=== PATIENT | female | born 1965 | race Caucasian/White ===

== ENCOUNTER → 2021-01-23 16:30 | Outpatient (BNVA) | payer OTHER, SELFPAY | PROVIDERS: PCP Family Medicine; Visit Provider Family Medicine | DX: J06.9 Acute upper respiratory infection, unspecified (principal) | CPT/HCPCS: 87400 ==

== ENCOUNTER → 2021-01-24 09:27 | Outpatient (BNVA) | payer OTHER, SELFPAY | PROVIDERS: PCP Family Medicine; Visit Provider Family Medicine | DX: Z20.822 Contact with and (suspected) exposure to COVID-19 (principal); Z11.52 Encounter for screening for COVID-19 | CPT/HCPCS: 87635 ==

== ENCOUNTER → 2021-01-30 15:45 | Outpatient (BNVA) | payer OTHER, SELFPAY | PROVIDERS: PCP Family Medicine; Visit Provider Nurse Practitioner Family | DX: J18.9 Pneumonia, unspecified organism (principal) | CPT/HCPCS: 71046 ==

== ENCOUNTER 2021-06-19 14:08 | Outpatient (CLI) | payer OTHER, SELFPAY ==
--- NOTE | 2021-06-19 14:21 | CT_ITS ---
WS: [id number] CT CHEST WITHOUT INTRAVENOUS CONTRAST HISTORY: R91.1 - Solitary pulmonary nodule TECHNIQUE: Contiguous 5 mm axial imaging performed on the thorax. Coronal and sagittal reformats are submitted. All CT scans at [facility] use at least one of these dose optimization techniques: automated exposure control; mA and/or kV adjustment per patient size (includes targeted exams where dose is matched to clinical indication); or iterative reconstruction. CONTRAST: None DLP: 654.72 mGy.cm COMPARISON: Chest radiograph 01/30/2021 Lungs and central airway: Lungs are mildly hyperexpanded. There is mild thickening of the interstitiu m in the periphery of the lungs. This is most significant in the mid and lower lung mattson. No mass o r nodule identified. No pneumonia. No asymmetry in the lucency of the lungs. Pleura: Normal. No pleural effusion. Heart and pericardium: Moderate enlargement the heart. No pericardial effusion. There are a few scatt ered coronary artery calcifications. Mediastinum and soni: Benign calcified LEFT hilar lymph nodes. No adenopathy. Vessels: Mild atherosclerosis aorta. Pulmonary artery size is equal to the aorta. Chest wall and lower neck: No soft tissue masses. Upper abdomen: Liver is moderately enlarged. The entire liver is not visualized. There is diffuse hep atic steatosis. Prior cholecystectomy. No adrenal mass. No bile duct dilatation evident. Osseous structures: No destructive process. CT/CT chest wo con [id number] IMPRESSION: 1. No pulmonary mass or nodule. 2. Hyperexpanded lungs with mild peripheral interstitial thickening. 3. Moderate hepatomegaly and hepatic steatosis. 4. Prior cholecystectomy. 5. No adenopathy.
== END 2021-06-19 14:09 | disposition home or self-care (01) ==
PROVIDERS: PCP Nurse Practitioner Family; Visit Provider Internal Medicine Pulmonary Disease
DX: R91.1 Solitary pulmonary nodule (principal); Z90.49 Acquired absence of other specified parts of digestive tract; R16.0 Hepatomegaly, not elsewhere classified; K76.0 Fatty (change of) liver, not elsewhere classified
CPT/HCPCS: 71250

== ENCOUNTER 2021-10-06 10:15 | Outpatient (CLI) | payer OTHER, SELFPAY ==
--- NOTE | 2021-10-06 10:28 | USCV_ITS ---
Callie Almaraz Age: 56 Gender: F : 1965 Exam Date: 10/06/2021 10:42 Ordering Phys: Deanna Longo Technologist: Donny Reyes Exam Location: [facility] [place] Indication: chest pain BP: 122 / 72 HR: 66 Rhythm: Sinus Technical Quality: Adequate MEASUREMENTS (Male / Female) Normal Values 2D ECHO LV Diastolic Diameter PLAX 3.8 cm 4.2 - 5.9 / 3.9 - 5.3 cm LV Systolic Diameter PLAX 2.9 cm IVS Diastolic Thickness 0.9 cm 0.6 - 1.0 / 0.6 - 0.9 cm IVS Systolic Thickness 1.5 cm LVPW Diastolic Thickness 1.1 cm 0.6 - 1.0 / 0.6 - 0.9 cm LVPW Systolic Thickness 1.6 cm LVOT Diameter 2.1 cm LV Ejection Fraction 2D Teich 50.2 % LV Ejection Fraction MOD 2C 57.4 % LV Ejection Fraction 2C AL 57.8 % LA Diameter 3.5 cm Aorta at Sinotubular Diameter 2.5 cm IVC Diameter 1.6 cm M-MODE Aortic Annulus Diameter 3.1 cm LA Ao Ratio MM 1.3 MV E Point Septal Separation 1.0 cm DOPPLER AV Peak Velocity 136.0 cm/s LVOT Peak Velocity 109.0 cm/s AV Area Cont Eq vti 3.1 cm squared AV Area Cont Eq pk 2.7 cm squared MV Area PHT 5.0 cm squared Mitral E to A Ratio 1.0 MV E' Velocity 48.0 cm/s Mitral E to MV E' Ratio 9.3 Mitral E to LV E' Lateral Ratio 8.7 Mitral E to LV E' Septal Ratio 10.1 TR Peak Velocity 158.7 cm/s TR Peak Gradient 10.1 mmHg Right Atrial Pressure 3.0 mmHg Pulmonary Artery Systolic Pressu 13.1 mmHg PV Peak Velocity 87.0 cm/s FINDINGS Left Ventricle Normal left ventricular size and systolic function, EF 69 %. No regional wall motion abnormalities. Right Ventricle The right ventricle is normal in size and function. Right Atrium The right atrium is normal in size. Left Atrium The left atrium is normal in size. Mitral Valve No gross abnormalities noted . Aortic Valve No gross abnormalities noted Tricuspid Valve Trace tricuspid valve regurgitation. Pulmonic Valve No gross abnormalities noted Pericardium Normal pericardium without effusion. Aorta Normal ascending aorta dimension. IVC Normal inferior vena cava. CONCLUSIONS Normal left ventricular size and systolic function, EF 69 %. No regional wall motion abnormalities. Trace tricuspid valve regurgitation. There is no pericardial effusion. There are no intracardiac masses. No similar previous studies are available for comparison Dr Selam Herrera MD FACC (Electronically Signed) Final Date: 07 October 2021 08:26 S
== END 2021-10-06 10:16 | disposition home or self-care (01) ==
LOC: RAD 10:16
PROVIDERS: PCP Nurse Practitioner Family; Visit Provider Registered Nurse
DX: R05.3 Chronic cough (principal); R06.02 Shortness of breath; I51.7 Cardiomegaly; R07.9 Chest pain, unspecified
CPT/HCPCS: 93306

== ENCOUNTER → 2022-07-25 15:04 | Outpatient (BNVA) | payer OTHER, SELFPAY | PROVIDERS: Visit Provider Family Medicine | DX: J06.9 Acute upper respiratory infection, unspecified (principal); Z87.891 Personal history of nicotine dependence | CPT/HCPCS: 71046 ==

== ENCOUNTER 2022-08-28 14:02 | Emergency (ER) | payer OTHER, SELFPAY ==
[2022-08-28 14:26] VITALS: BP 123/71; PULSE 69; RESP 14; TEMP 36.7; O2SAT 95; BMI 32.8
[2022-08-28 15:47] VITALS: BP 115/78; PULSE 62; RESP 15; TEMP 36.8; O2SAT 96
--- NOTE | 2022-08-28 16:47 | ECG_ITS ---
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 Measurements Intervals [place] Rate: 79 P: 69 TX: 141 QRS: 86 QRSD: 83 T: 42 QT: 364 QTc: 419 Interpretive Statements SINUS RHYTHM Compared to ECG 06/10/2015 13:24:20 No significant changes Electronically Signed On 08-29-2022 13:54:54 CDT by Yasmany Pinto M.D. [id number]
--- NOTE | 2022-08-28 17:40 | XRR_ITS ---
PROCEDURE INFORMATION: Exam: XR Chest Exam date and time: 08/28/2022 5:45 PM Age: 57 years old Clinical indication: Pain; Chest pressure; Additional info: Chest pain since this morning TECHNIQUE: Imaging protocol: Radiologic exam of the chest. Views: 1 view. COMPARISON: CR XR chest 2V* [id number] 07/25/2022 4:10 PM FINDINGS: Lungs: Lungs are clear bilaterally. Pleural spaces: No pleural effusion. No pneumothorax. Heart/Mediastinum: Stable mild enlargement of the cardiac silhouette. Mediastinal contours are unremarkable. Vasculature: Vascular calcifications in the aorta. Bones/joints: Unremarkable for age. XR/XR chest 1V portable [id number] IMPRESSION: 1. No acute cardiopulmonary process. 2. Incidental/nonacute findings are listed in the report.
--- NOTE | 2022-08-28 17:48 | W.ED.CHESTPA ---
HPI - Chest Pain General: Chief Complaint: Chest Pain Stated Complaint: chest pain Time Seen by Provider: 08/28/22 17:40 History of Present Illness: 57-year-old female comes in today for complaints of chest discomfort when she awakened this morning. Patient had some increased pain throughout the day. Patient was concerned due to her blood pressure also being high. Patient had a angiogram done in 2016 that showed only 20% of blockage. Patient denies history of diabetes. Patient does have a history of rheumatoid arthritis which she takes medications for. Patient appears nontoxic. Patient appears in mild pain. Associated symptoms: Deny dyspnea, nausea or vomiting Review of Systems General: Reports: 10 or more systems reviewed and unremarkable except in HPI and below Card: Reports: chest pain Resp: Denies: dyspnea GI: Denies: nausea or vomiting : Denies: flank pain PFSH ED PFSH: Medical History Depression Pneumonia Rheumatoid arthritis Social History Smoking and tobacco status: never smoked Physical Exam Const: COMMON NORMALS: alert HENMT: COMMON NORMALS: normocephalic HEAD & SCALP: normocephalic Neck/C-Spine: COMMON NORMALS: full ROM Chest: CHEST: Yes tenderness (Right sternal costal border) Resp: COMMON NORMALS: normal respiratory effort and clear to auscultation bilaterally AUSCULTATION: clear to auscultation bilaterally Cardio: COMMON NORMALS: regular rate and regular rhythm RATE: regular rate RHYTHM: regular rhythm GI: COMMON NORMALS: Soft to palpation and non-tender PALPATION: Yes Soft to palpation : COMMON NORMALS: Yes no CVA tenderness BLADDER/KIDNEY EXAM: Yes no CVA tenderness Back/Pelvis: COMMON NORMALS: no CVA tenderness and thoracic and lumbar spine normal to inspection Extremity: COMMON NORMALS: no pedal edema Neuro: SENSORIUM/ORIENTATION: Yes alert Skin: COMMON NORMALS: turgor normal GENERAL SKIN EXAM: turgor normal Course Vital Signs: Vital signs: Vital Signs Temperature 98.3 F 08/28/22 15:47 Pulse Rate 62 08/28/22 15:47 Respiratory Rate 15 08/28/22 15:47 Blood Pressure 115/78 08/28/22 15:47 Pulse Oximetry 96 08/28/22 15:47 Oxygen Delivery Me thod Room Air 08/28/22 15:47 MDM - Chest Pain Medical Decision Making 57-year-old female comes in today for complaints of chest pain starting this morning when she woke up. Patient had taken some aspirin and went to work thinking that it would improve throughout the day. Patient reported some persistent pain and had her blood pressure checked at work. Blood pressure was in the 150s systolic which concerned her and she proceeded to the ER. On exam patient appears nontoxic. Patient appears in mild pain. Respirations are even lungs are clear to auscultation. Patient has reproducible chest pain on palpation of the right sternal costal border and left lower rib area. Skin is warm and dry. Abdomen soft nontender. No edema is noted in the extremities. Vital signs are normal. Differential diagnosis includes but not limited to musculoskeletal pain, ACS, pneumonia. EKG showed normal sinus rhythm without any significant changes. Chest x-ray noted no acute abnormality. Troponin was less than 6. Remainder of labs were unremarkable. Reviewed exam with patient feel that is musculoskeletal most likely costochondritis. Recommend that she monitor for fever as it could be a early sign of rheumatic flare. Patient reported understanding and agreed to plan. Lab Data 08/28/22 17:55 08/28/22 19:00 Radiology Impressions Chest X-Ray 08/28/22 17:40 IMPRESSION: 1. No acute cardiopulmonary process. 2. Incidental/nonacute findings are listed in the report. Laboratory Results WBC 8.6 10^3/uL (4.0-10.0) 08/28/22 17:55 RBC 4.90 10^6/uL (4.1-5.3) 08/28/22 17:55 Hgb 15.7 g/dL (11.5-15.3) H 08/28/22 17:55 Hct 48.0 % (37.0-47.0) H 08/28/22 17:55 MCV 98.0 fl (81-99) 08/28/22 17:55 MCH 32.0 pg (28.0-34.0) 08/28/22 17:55 MCHC 32.7 g/dL (30.0-36.0) 08/28/22 17:55 RDW 13.2 % (12.1-15.1) 08/28/22 17:55 Plt Count 171 10^3/cmm (130-400) 08/28/22 17:55 MPV 10.7 fL (7.4-10.4) H 08/28/22 17:55 Neut % (Auto) 60.6 % 08/28/22 17:55 Lymph % (Auto) 31.0 % 08/28/22 17:55 Schuyler % (Auto) 6.2 % 08/28/22 17:55 Eos % (Auto) 1.4 % 08/28/22 17:55 Baso % (Auto) 0.6 % 08/28/22 17:55 Neut # (Auto) 5.22 10^3/uL (1.8-7.7) 08/28/22 17:55 Lymph # (Auto) 2.7 10^3/uL (0.8-4.8) 08/28/22 17:55 Schuyler # (Auto) 0.5 10^3/uL (0.2-0.9) 08/28/22 17:55 Eos # (Auto) 0.1 10^3/uL (0.0-0.8) 08/28/22 17:55 Baso # (Auto) 0.1 10^3/uL (0.0-0.1) 08/28/22 17:55 Nucleated RBC % (auto) 0 % 08/28/22 17:55 Nucleated RBCs # 0.0 /100WBC 08/28/22 17:55 Troponin T Baseline 6 ng/L (0-10) 08/28/22 19:00 EKG Data EKG 1: EKG interpretation date: 08/28/22 EKG interpretation time: 18:15 Interpretation: EKG shows a normal sinus rhythm with a regular rate at [address] elevation or ectopy is noted. No significant changes from prior exam. Discharge Plan Discharge Patient Disposition: Home Clinical Impression: Anterior chest wall pain Condition: Stable Prescriptions: No Action citalopram 40 mg tablet PO levothyroxine 25 mcg tablet PO prednisone 5 mg tablet 5 mg PO DAILY Xeljanz 5 mg tablet 5 mg PO BID azithromycin 250 mg tablet See Rx Instructions PO .COMPLEX Qty: 6 0RF Rx Instructions: For 250 mg dose pack: take 500 mg today (day 1), then 250 mg for 4 days (days 2-5) PO prednisone 20 mg tablet 20 mg PO DAILY 5 Days Qty: 5 0RF albuterol sulfate 90 mcg/actuation HFA aerosol inhaler 1 inh inhalation QID PRN (Reason: shortness of breath or wheezing) Qty: 8.5 0RF Discharge Orders: Discharge ED (Routine); Ordered 08/28/22 Ordered By: Mak Booth Referrals: Peter Hannah [Primary Care Provider] - Discharge Diet: Usual diet Discharge Activity: Increase activity as tolerated Patient Instructions: Costochondritis (ED) Activity Restrictions/Additional Instructions: Follow your routine medications for mild pain. Drink plenty of water. Monitor for fever. Return to ED for worsening symptoms or new concerns. Coding Level of Care Code ED Orthodontist Assistant for Jack Hunter
--- NOTE | 2022-08-28 18:07 | ECG_ITS ---
[facility] Test Date: 2022-08-28 Pat Name: Callie Almaraz Department: Room: Gender: Female Director Compensation: : 1965 Requested By: Mak La Order Number: [id number] Obi MD: Yasmany Pinto M.D. Measurements Intervals [place] Rate: 61 P: 31 AR: 142 QRS: 71 QRSD: 87 T: 35 QT: 424 QTc: 429 Interpretive Statements SINUS RHYTHM Compared to ECG 08/28/2022 14:11:06 No significant changes Electronically Signed On 08-29-2022 13:54:37 CDT by Yasmany Pinto M.D. [id number]
[2022-08-28 18:20] LABS: Basophils # 0.1 10^3/uL (0.0-0.1); Basophils % 0.6 %; Eosinophils # 0.1 10^3/uL (0.0-0.8); Eosinophils % 1.4 %; Hemoglobin 15.7 g/dL (11.5-15.3); Lymphocytes # 2.7 10^3/uL (0.8-4.8); Mean Corpuscular HGB Conc 32.7 g/dL (30.0-36.0); Mean Platelet Volume 10.7 fL (7.4-10.4); Monocytes # 0.5 10^3/uL (0.2-0.9); Monocytes % 6.2 %; Neutrophils # 5.22 10^3/uL (1.8-7.7); Neutrophils % 60.6 %; Nucleated Red Blood Cells % 0 %; Platelet Count 171 10^3/cmm (130-400); Red Cell Distribution Width 13.2 % (12.1-15.1); White Blood Count 8.6 10^3/uL (4.0-10.0)
[2022-08-28 19:34] LABS: Troponin(5th) Baseline 6 ng/L (0-10)
[2022-08-28 19:52] LABS: Alanine Aminotransferase 23 U/L (0-33); Albumin Level 4.4 g/dL (3.5-5.2); Alkaline Phosphatase 77 U/L (35-105); Aspartate Amino Transferase 28 U/L (0-32); Blood Urea Nitrogen 14 mg/dL (6-20); Calcium 8.9 mg/dL (8.5-10.5); Carbon Dioxide 25 mmol/L (22-29); Chloride 102 mmol/L (98-107); Globulin 2.3 g/dL (1.3-4.6); Glomerular Filtration Rate 85.6 mL/min (90-130); Glucose 80 mg/dL (65-115); Lipase 28 U/L (13-60); NT Pro B Type Natriuretic Pept 96 pg/mL (0-125); Osmolality Calculated 287 mOsm/kg (285-295); Sodium 139 mmol/L (136-145); Total Bilirubin 0.3 mg/dL (0.15-1.2); Total Protein 6.7 g/dL (6.6-8.7)
[2022-08-28 19:55] VITALS: BP 126/86; PULSE 63; RESP 16; O2SAT 96
[2022-08-28 19:57] LABS: Anion Gap 16.1 (5-19); Potassium 4.1 mmol/L (3.5-5.1)
== END 2022-08-28 19:56 | disposition home or self-care (01) ==
PROVIDERS: Emergency Provider Nurse Practitioner Family; PCP Family Medicine
DX: R07.89 Other chest pain (principal)
CPT/HCPCS: 36415; 71045; 80053; 83690; 83880; 84484; 85025; 93005; 99285

== ENCOUNTER → 2022-10-22 11:06 | Outpatient (BNVA) | payer OTHER, SELFPAY | PROVIDERS: PCP Family Medicine; Visit Provider Nurse Practitioner Family | DX: J02.9 Acute pharyngitis, unspecified (principal) | CPT/HCPCS: 87071; 87880 ==

== ENCOUNTER → 2023-03-01 14:17 | Outpatient (BNVA) | payer OTHER, SELFPAY | PROVIDERS: PCP Family Medicine; Visit Provider Nurse Practitioner Family | DX: R68.89 Other general symptoms and signs (principal); J18.9 Pneumonia, unspecified organism; R05.9 Cough, unspecified; J10.1 Influenza due to other identified influenza virus with other respiratory manifestations | CPT/HCPCS: 87400; 87426 ==

== ENCOUNTER → 2023-05-01 08:33 | Outpatient (BNVA) | payer OTHER, SELFPAY | PROVIDERS: PCP Nurse Practitioner Family; Visit Provider Nurse Practitioner Family | DX: R91.1 Solitary pulmonary nodule (principal); R06.00 Dyspnea, unspecified | CPT/HCPCS: 71046 ==

== ENCOUNTER 2023-06-03 11:31 | Outpatient (CLI) | payer OTHER, SELFPAY ==
[2023-06-03 11:58] VITALS: BMI 32.9
--- NOTE | 2023-06-03 11:58 | ECG_ITS ---
[facility] Test Date: 2023-06-03 Pat Name: Callie Almaraz Department: Room: Gender: Female Control Clerk Auditing: Maria Guadalupe Perez : 1965 Requested By: Mp Sorenson Order Number: [id number] Obi MD: Selam Herrera M.D. Interpretive Statements NAME OF STUDY: TREADMILL STRESS TEST INDICATION: Exertional SOB, PROCEDURE: At the baseline, the patient's blood pressure was 125/84 with a heart rate of 73. The baseline electrocardiogram showed normal sinus rhythm with normal ST-Ts.. The patient exercised for 3 minutes and 43 seconds on a standard Jere protocol. Patient attained a maximum heart rate of 143 beats per minute(89% of the maximum predicted heart rate) with a blood pressure at the peak exercise of 157/65 mm Hg. The EKG at the peak exercise revealed some nonspecific ST-T changes. Patient did not have any chest pain or any significant cardiac arrhythmias with the exercise During the recovery phase, there were no new changes. Blood pressure at the end of the recovery phase was 128/50 mm Hg with a heart rate of 89 per minute. CONCLUSION: 1. Nonspecific EKG changes with treadmill exercise 2. No exercise-induced chest pain or cardiac arrhythmia 3. Impaired exercise tolerance, attained a maximum of 7 point METs Electronically Signed On 06-09-2023 19:39:34 CDT by Selam Herrera M.D. [id number]
[2023-06-03 12:25] VITALS: BP 128/56; PULSE 84
== END 2023-06-03 11:32 | disposition home or self-care (01) ==
PROVIDERS: PCP Nurse Practitioner Family; Visit Provider Nurse Practitioner Family
DX: R06.00 Dyspnea, unspecified (principal)
CPT/HCPCS: 93017

== ENCOUNTER → 2024-02-18 11:48 | Outpatient (BNVA) | payer OTHER, SELFPAY | PROVIDERS: PCP Nurse Practitioner Family; Visit Provider Nurse Practitioner Family | DX: R30.0 Dysuria (principal); N39.0 Urinary tract infection, site not specified; J06.9 Acute upper respiratory infection, unspecified | CPT/HCPCS: 81003; 87086 ==